=== PATIENT | male | born 2000 | race Caucasian/White ===

== ENCOUNTER 2019-08-20 17:45 | Emergency (ER) | payer BC, OTHER ==
[~2019-08-20] VITALS: Ht 190.5 cm; Wt 69.3 kg
[2019-08-20] MEDS ORDERED: LACTATED RINGERS 1,000 ML IV ONE (18:28)
[2019-08-20] MEDS ORDERED: HYOSCYAMINE 0.125 MG (LEVSIN) TAB SL ONE (18:30)
[2019-08-20] MEDS ORDERED: KETOROLAC 30 MG/ML VIAL IVP ONE (19:00)
[2019-08-20] MEDS ORDERED: ONDANSETRON 4 MG/2 ML (SDV) Z0FRAN IVP ONE (19:00)
[2019-08-20] MEDS ORDERED: FAMOTIDINE 20MG/2ML IV (PEPCID) IVP ONE (19:00)
[2019-08-20 19:03] LABS: BASOPHILS % (AUTO) 0 % (0-10); EOSINOPHILS % (AUTO) 0 % (0-10); HEMATOCRIT 47 % (40-54); HEMOGLOBIN 16.7 G/DL (13.3-17.7); LYMPHOCYTES # (AUTO) 0.6 X 10^3 (1.0-4.0); LYMPHOCYTES % (AUTO) 10 % (12-44); MEAN CORPUSCULAR HEMOGLOBIN 31 PG (25-34); MEAN CORPUSCULAR HGB CONC 35 G/DL (32-36); MEAN CORPUSCULAR VOLUME 88 FL (80-99); MEAN PLATELET VOLUME 11.2 FL (7.4-10.4); MONOCYTES # (AUTO) 0.9 X 10^3 (0.0-1.0); MONOCYTES % (AUTO) 15 % (0-12); NEUTROPHILS # (AUTO) 4.6 X 10^3 (1.8-7.8); NEUTROPHILS % (AUTO) 75 % (42-75); PLATELET COUNT 171 10^3/uL (130-400); WHITE BLOOD COUNT 6.1 10^3/uL (4.3-11.0)
--- NOTE | 2019-08-20 19:05 | ED General ---
General Chief Complaint: Fever-Adult/Adol Stated Complaint: POSS FLU - FEVER / VOMITING Nursing Triage Note: Pt reports being diagnosed with flu and prescribed Tamiflu at [facility] in yesterday. Pt reports symptoms are worsening. Pt c/o JEFFERSON, chills, diarrhea. Nursing Sepsis Screen: Possible Severe Sepsis Risk Source of Information: Patient, Family Exam Limitations: No Limitations History of Present Illness Date Seen by Provider: Aug 20, 2019 Time Seen by Provider: 18:12 Initial Comments This 19-year-old young man presents to the emergency room by private vehicle with complications from influenza A. He was seen at the [facility] clinic yesterday and diagnosed with influenza A. He has had symptoms since August 17. He was started on Tamiflu but he thinks he may be vomiting the Tamiflu after swallowing. He has had increasing trouble with vomiting, epigastric pain, and fairly profound diarrhea. His headache is getting worse. He has typical flu symptoms of cough, congestion, headache, myalgia, etc. He has been taking DayQuil and NyQuil and a couple doses of ibuprofen. He is afebrile at present. Allergies and Home Medications Allergies Coded Allergies: No Known Drug Allergies (Unverified , 08/20/19) Home Medications Ondansetron 4 Mg Tab.rapdis, 4 MG SL Q4H PRN for NAUSEA/VOMITING Prescribed by: KAYLYNN RUTHERFORD on 08/20/192037 Promethazine HCl 25 Mg Tablet, 25 MG PO Q6H PRN for NAUSEA/VOMITING Prescribed by: KAYLYNN RUTHERFORD on 08/20/192037 Patient Home Medication List Home Medication List Reviewed: Yes Review of Systems Review of Systems Constitutional: see HPI EENTM: see HPI Respiratory: see HPI Cardiovascular: no symptoms reported Gastrointestinal: see HPI Genitourinary: no symptoms reported Musculoskeletal: see HPI Skin: no symptoms reported Psychiatric/Neurological: See HPI Hematologic/Lymphatic: No Symptoms Reported Past Xbgcabh-Gilxha-Lghofq Hx Past Med/Social Hx: Reviewed Nursing Past Med/Soc Hx Patient Social History Alcohol Use: Denies Use Recreational Drug Use: No 2nd Hand Smoke Exposure: No Recent Foreign Travel: No Contact w/Someone Who Travel: No Recent Infectious Disease Expo: No Recent Hopitalizations: No Seasonal Allergies Seasonal Allergies: No Past Medical History Surgeries: No Respiratory: No Cardiac: No Neurological: No Genitourinary: No Gastrointestinal: No Musculoskeletal: No Endocrine: No HEENT: No Cancer: No Psychosocial: No Integumentary: No Blood Disorders: No Physical Exam Vital Signs Vital Signs - First Documented 08/20/19 18:12 Temp 37.5 Pulse 103 Resp 16 B/P (MAP) 120/79 (93) Pulse Ox 97 O2 Delivery Room Air Capillary Refill : Less Than 3 Seconds Height, Weight, BMI Height: '" Weight: lbs. oz. kg; 19.00 BMI Method: General Appearance: WD/WN, Mild Distress HEENT: PERRL/EOMI, TMs Normal, Normal ENT Inspection, Pharynx Normal, Other (mucous membranes somewhat dry) Neck: Normal Inspection, Supple Respiratory: Lungs Clear, Normal Breath Sounds, No Accessory Muscle Use, No Respiratory Distress Cardiovascular: No Edema, No Murmur, Tachycardia Gastrointestinal: Normal Bowel Sounds, Soft, Tenderness (epigastrium) Extremity: Normal Inspection, No Pedal Edema Neurologic/Psychiatric: Alert, Oriented x3, No Motor/Sensory Deficits, Normal Mood/Affect, field service engineer II-XII Norm as Tested Skin: Normal Color, Warm/Dry Progress/Results/Core Measures Suspected Sepsis Recent Fever Within 48 Hours: Yes Infection Criteria Present: Suspected New Infection New/Unexplained Altered Menta: No Sepsis Screen: Possible Severe Sepsis Risk SIRS Temperature: Pulse: 103 Respiratory Rate: 16 Laboratory Tests 08/20/19 18:54: White Blood Count 6.1 Blood Pressure 120 /79 Mean: 93 Laboratory Tests 08/20/19 18:54: Creatinine 1.03, Platelet Count 171, Total Bilirubin 0.7 Results/Orders Lab Results Laboratory Tests Test 08/20/19 18:54 Range/Units White Blood Count 6.1 4.3-11.0 10^3/uL Red Blood Count 5.37 4.35-5.85 10^6/uL Hemoglobin 16.7 13.3-17.7 G/DL Hematocrit 47 40-54 % Mean Corpuscular Volume 88 80-99 FL Mean Corpuscular Hemoglobin 31 25-34 PG Mean Corpuscular Hemoglobin Concent 35 32-36 G/DL Red Cell Distribution Width 13.0 10.0-14.5 % Platelet Count 171 130-400 10^3/uL Mean Platelet Volume 11.2 H 7.4-10.4 FL Neutrophils (%) (Auto) 75 42-75 % Lymphocytes (%) (Auto) 10 L 12-44 % Monocytes (%) (Auto) 15 H 0-12 % Eosinophils (%) (Auto) 0 0-10 % Basophils (%) (Auto) 0 0-10 % Neutrophils # (Auto) 4.6 1.8-7.8 X 10^3 Lymphocytes # (Auto) 0.6 L 1.0-4.0 X 10^3 Monocytes # (Auto) 0.9 0.0-1.0 X 10^3 Eosinophils # (Auto) 0.0 0.0-0.3 10^3/uL Basophils # (Auto) 0.0 0.0-0.1 10^3/uL Sodium Level 137 135-145 MMOL/L Potassium Level 3.8 3.6-5.0 MMOL/L Chloride Level 102 98-107 MMOL/L Carbon Dioxide Level 20 L 21-32 MMOL/L Anion Gap 15 H 5-14 MMOL/L Blood Urea Nitrogen 7 7-18 MG/DL Creatinine 1.03 0.60-1.30 MG/DL Estimat Glomerular Filtration Rate > 60 BUN/Creatinine Ratio 7 Glucose Level 87 70-105 MG/DL Calcium Level 9.2 8.5-10.1 MG/DL Corrected Calcium 8.5-10.1 MG/DL Magnesium Level 1.7 1.6-2.4 MG/DL Total Bilirubin 0.7 0.1-1.0 MG/DL Aspartate Amino Transf (AST/SGOT) 25 5-34 U/L Alanine Aminotransferase (ALT/SGPT) 22 0-55 U/L Alkaline Phosphatase 49 40-136 U/L Total Protein 7.6 6.4-8.2 GM/DL Albumin 4.7 H 3.2-4.5 GM/DL My Orders Orders - KAYLYNN TATUM MD Ed Iv/Invasive Line Start (08/20/19 18:28) Lactated Ringers (Lr 1000 Ml Iv Solution (08/20/19 18:28) Hyoscyamine Sl Tablet (Levsin Sl Tablet) (08/20/19 18:30) Cbc With Automated Diff (08/20/19 18:28) Comprehensive Metabolic Panel (08/20/19 18:28) Magnesium (08/20/19 18:28) Famotidine Injection (Pepcid Injection) (08/20/19 19:00) Ondansetron Injection (Zofran Injectio (08/20/19 19:00) Ketorolac Injection (Toradol Injection) (08/20/19 19:00) Promethazine Injection (Phenergan Injec (08/20/19 20:30) Ns Iv 1000 Ml (Sodium Chloride 0.9%) (08/20/19 20:20) Fentanyl Injection (Sublimaze Injection (08/20/19 20:30) Oxycodone/Apap 5/325mg Tablet (Percocet (08/20/19 21:45) Medications Given in ED Current Medications Medications Dose Ordered Sig/Chidi Route Start Time Stop Time Status Last Admin Dose Admin Famotidine 20 mg ONCE ONCE IVP 08/20/19 19:00 08/20/19 19:01 DC 08/20/19 19:32 20 MG Fentanyl Citrate 50 mcg ONCE ONCE IVP 08/20/19 20:30 08/20/19 20:31 DC 08/20/19 20:32 50 MCG Hyoscyamine Sulfate 0.25 mg ONCE ONCE SL 08/20/19 18:30 08/20/19 18:31 DC 08/20/19 19:32 0.25 MG Ketorolac Tromethamine 30 mg ONCE ONCE IVP 08/20/19 19:00 08/20/19 19:01 DC 08/20/19 19:32 30 MG Lactated Ringer's 1,000 ml @ 0 mls/hr Q0M ONCE IV 08/20/19 18:28 08/20/19 18:30 DC 08/20/19 19:31 999 MLS/HR Ondansetron HCl 8 mg ONCE ONCE IVP 08/20/19 19:00 08/20/19 19:01 DC 08/20/19 19:32 8 MG Oxycodone/ Acetaminophen 1 tab ONCE ONCE PO 08/20/19 21:45 08/20/19 21:46 DC 08/20/19 21:44 1 TAB Promethazine HCl 25 mg ONCE ONCE IVP 08/20/19 20:30 08/20/19 20:31 DC 08/20/19 20:32 25 MG Sodium Chloride 1,000 ml @ 0 mls/hr Q0M ONCE IV 08/20/19 20:20 08/20/19 20:21 DC 08/20/19 20:31 999 MLS/HR Vital Signs/I&O 08/20/19 08/20/19 18:12 21:48 Temp 37.5 37.5 Pulse 103 89 Resp 16 16 B/P (MAP) 120/79 (93) 121/76 (93) Pulse Ox 97 99 O2 Delivery Room Air Room Air 08/21/19 00:00 Intake Total 2000 ml Balance 2000 ml Capillary Refill : Less Than 3 Seconds Blood Pressure Mean: 93 Progress Note : Progress Note Patient was initially treated with IV fluids, Zofran, Toradol, and Pepcid. He had residual symptoms of nausea and headache. He was further treated with more IV fluids, Phenergan, and fentanyl. He had some rebound headache that was further treated with Percocet before discharge. Workup was unremarkable. Was advised to stop the Tamiflu as his GI symptoms may have been in part related to Tamiflu. Departure Impression Primary Impression: Influenza Additional Impressions: Nausea vomiting and diarrhea Headache Qualified Codes: R51 - Headache Disposition: 01 HOME, SELF-CARE Condition: Improved Departure-Patient Inst. Decision time for Depature: 20:15 Referrals: HERON VAZQUEZ MD (PCP/Family) Primary Care Physician Patient Instructions: Flu Add. Discharge Instructions: Drink plenty of clear liquids to stay well-hydrated. Gradually advance your diet with small quantities of bland food as tolerated. Avoid milk products or fatty or greasy foods for at least 48 hours after diarrhea resolves. For pain you may take ibuprofen up to 600 mg every 6 hours as needed. Add Tylenol (acetaminophen) up to 1000 mg every 6 hours as needed for additional pain relief. Tylenol and ibuprofen may also be used for fever. Uses Zofran (ondansetron) dissolved under the tongue as prescribed for nausea and vomiting. Use Phenergan (promethazine) as prescribed as a backup nausea medication if Zofran is not sufficient. Further use of Tamiflu is likely not to be very effective in treating your episode of flu and may worsen your gastrointestinal symptoms. I recommend stopping Tamiflu. Return to the emergency room if you have worsening symptoms despite these measures. Do not return to work or school for at least 24 hours after symptoms have resolved. All discharge instructions reviewed with patient and/or family. Voiced understanding. Scripts Promethazine HCl (Promethazine Tablet) 25 Mg Tablet 25 MG PO Q6H PRN for NAUSEA/VOMITING, #10 TAB Prov: KAYLYNN TATUM MD 08/20/19 Ondansetron (Ondansetron Odt) 4 Mg Tab.rapdis 4 MG SL Q4H PRN for NAUSEA/VOMITING, #10 TAB Prov: KAYLYNN TATUM MD 08/20/19 KAYLYNN TATUM MD Aug 20, 2019 19:05
[2019-08-20 19:23] LABS: ALANINE AMINOTRANSFERASE 22 U/L (0-55); ALBUMIN 4.7 GM/DL (3.2-4.5); ALKALINE PHOSPHATASE 49 U/L (40-136); BILIRUBIN,TOTAL 0.7 MG/DL (0.1-1.0); BUN/CREATININE RATIO 7; CALCIUM 9.2 MG/DL (8.5-10.1); CARBON DIOXIDE 20 MMOL/L (21-32); CHLORIDE 102 MMOL/L (98-107); CREATININE SERUM 1.03 MG/DL (0.60-1.30); GFR ESTIMATED > 60; GLUCOSE 87 MG/DL (70-105); MAGNESIUM 1.7 MG/DL (1.6-2.4); POTASSIUM 3.8 MMOL/L (3.6-5.0); SODIUM 137 MMOL/L (135-145); TOTAL PROTEIN 7.6 GM/DL (6.4-8.2)
[2019-08-20] MEDS ORDERED: NS IV 1000 ML 1,000 ML IV ONE (20:20)
[2019-08-20] MEDS ORDERED: PROMETHAZINE INJ 25 MG/ML (PHENERGAN) AMP IVP ONE (20:30)
[2019-08-20] MEDS ORDERED: fentaNYL INJECTION 100 MCG/2 ML AMP IVP ONE (20:30)
[2019-08-20] MEDS ORDERED: PROM25TA14 PO (20:38)
[2019-08-20] MEDS ORDERED: ONDA4TAB11 SL (20:38)
[2019-08-20] MEDS ORDERED: oxyCODONE/APAP 5/325MG (PERCOCET 5) TABLET PO ONE (21:45)
[2019-08-20 21:48] VITALS: BP 121/76
== END 2019-08-20 21:49 | disposition home or self-care (01) ==
LOC: EDUNIT# 17:45 → ER 17:47
DX: J11.1 Influenza due to unidentified influenza virus with other respiratory manifestations (principal)
CPT/HCPCS: 36415; 80053; 83735; 85025; 96361; 96374; 96375